=== PATIENT | female | born 1990 | race Two or more races ===

== ENCOUNTER 2016-11-21 19:00 | Emergency (ER) | payer MEDICAID ==
[~2016-11-21] VITALS: Ht 154.9 cm; Wt 68.0 kg
[2016-11-21 19:47] LABS: Basophils # (auto) 0 uL; Basophils % (auto) 0.5 % (0.0-2.0); Eosinophils # (auto) 0.1 uL; Eosinophils % (auto) 1.1 % (0.0-7.0); Hematocrit 40.8 % (36.0-46.0); Hemoglobin 13.3 g/dL (12.2-16.2); Lymphocytes # (auto) 1.7 uL; Lymphocytes % (auto) 19.1 % (10.0-50.0); Mean Corpuscular Hemoglobin 29.6 pg (28.0-32.0); Mean Corpuscular Hgb Conc. 32.6 g/dL (32.0-36.0); Mean Corpuscular Volume 90.8 fL (80.0-100.0); Mean Platelet Volume 9.1 fL (7.4-10.4); Monocytes # (auto) 0.6 uL; Monocytes % (auto) 6.7 % (0.0-12.0); Neutrophils # (auto) 6.5 uL; Neutrophils % (auto) 72.6 % (37.0-80.0); Platelet Count (auto) 280 10^3/uL (140-450); Red Cell Distribution Width 13.9 % (11.6-16.0); White Blood Cell 8.9 10^3/uL (4.4-10.8)
[2016-11-21 20:18] LABS: BUN/Creatinine Ratio 14.5; Bilirubin, Total 0.3 mg/dL (0.2-1.0); Potassium 3.5 mmol/L (3.5-5.1); Total Protein 7.9 g/dL (6.4-8.2)
[2016-11-22 00:40] LABS: Urine Bilirubin Negative (Negative); Urine Blood Negative /uL (Negative); Urine Color Yellow (Yellow); Urine Glucose Normal (Normal); Urine Ketone TRACE (Negative); Urine Nitrite POSITIVE (Negative); Urine RBC 4 /hpf (0 - 4); Urine Squamous Epithelial Cell FEW /hpf (<5); Urine Urobilinogen Normal (Negative)
[2016-11-22] MEDS ORDERED: MAGNESIUM CITRATE SOLUTION 300 ML BTL PO ONE (01:00)
[2016-11-22] MEDS ORDERED: cefTRIAXone SOD 1,000 MG VL IM ONE (01:00)
[2016-11-22 01:31] VITALS: BP 128/87
[2016-11-22] MEDS ORDERED: ONDANSETRON ODT 4 MG TAB PO ONE (01:45)
== END 2016-11-22 01:37 | disposition home or self-care (01) ==
LOC: ER 19:05
DX: N39.0 Urinary tract infection, site not specified (principal); K59.00 Constipation, unspecified; F20.9 Schizophrenia, unspecified
CPT/HCPCS: 36415; 74000; 80053; 81001; 84702; 85025; 96372; 99285; J0696; Q0162